=== PATIENT | male | born 1955 | race Caucasian/White ===

== ENCOUNTER 2016-12-21 05:48 | Inpatient (IN) | payer OTHER ==
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
[2016-12-21] MEDS ORDERED: ACETAMINOPHEN 325 MG TAB PO ONE (06:07)
[2016-12-21] MEDS ORDERED: TRANEXAMIC ACID 850 MG in NS 100 ML IV ONE (06:07)
[2016-12-21] MEDS ORDERED: ROPIVACAINE 0.2% 80 MG, EPINEPHrine 0.2 MG, KETOROLAC TROMETHAMINE 30 MG in BAG 0 ML IU ONE (06:07)
[2016-12-21] MEDS ORDERED: POVIDONE-IODINE 20 ML in SODIUM CL IRRIG SOLUTION 500 ML IRR ONE (06:07)
[2016-12-21] MEDS ORDERED: DEXAMETHASONE 4 MG/ML VIAL IVP ONE (06:07)
[2016-12-21] MEDS ORDERED: ceFAZolin 2 GM/DEXTROSE 100 ML IV ONE (06:07)
[2016-12-21] MEDS ORDERED: FAMOTIDINE 20 MG TAB PO ONE (06:07)
[2016-12-21] MEDS ORDERED: LIDOCAINE 1% 2 ML INJ ID PRN (06:08)
[2016-12-21] MEDS ORDERED: LR 1,000 ML IV ONE (06:08)
[2016-12-21] MEDS ORDERED: ceFAZolin 1 GM/5 ML SYR ONE (06:55)
[2016-12-21] MEDS ORDERED: MIDAZOLAM 2 MG/2 ML VIAL ONE ×2 (07:20→07:39)
[2016-12-21] MEDS ORDERED: PROPOFOL/EMULSION 500 MG/50 ML BOTTLE IV ONE (07:21)
[2016-12-21] MEDS ORDERED: fentaNYL 100 MCG/2 ML INJ ONE ×2 (07:59→10:05)
[2016-12-21] MEDS ORDERED: LIDOCAINE 2% 5 ML SDV ONE (08:16)
[2016-12-21] MEDS ORDERED: KETOROLAC 30 MG/1 ML SDV ONE (08:16)
[2016-12-21] MEDS ORDERED: ROPIVACAINE HCL 150 MG/30 ML INJ ONE (08:16)
[2016-12-21] MEDS ORDERED: ONDANSETRON 4 MG/2 ML VIAL ONE (08:16)
[2016-12-21] MEDS ORDERED: DEXAMETHASONE 10 MG/ML VIAL ONE (08:20)
[2016-12-21] MEDS ORDERED: METOCLOPRAMIDE 10 MG/2 ML VIAL IVP PRN ×2 (08:28→10:48)
[2016-12-21] MEDS ORDERED: ONDANSETRON 4 MG/2 ML VIAL IVP PRN ×2 (08:28→10:48)
[2016-12-21] MEDS ORDERED: LR 500 ML IV PRN (08:28)
[2016-12-21] MEDS ORDERED: NALOXONE HCL 0.4 MG/ML INJ IVP PRN (08:28)
[2016-12-21] MEDS ORDERED: ALBUTEROL 3 ML DEYVIAL IH PRN (08:28)
[2016-12-21] MEDS ORDERED: PROMETHAZINE HCL 25 MG/ML INJ IVP PRN ×2 (08:28→10:48)
[2016-12-21] MEDS ORDERED: fentaNYL 100 MCG/2 ML INJ IVP PRN (08:28)
[2016-12-21] MEDS ORDERED: MEPERIDINE 25 MG/ML SYR IVP PRN (08:28)
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
[2016-12-21] MEDS ORDERED: BISACODYL 10 MG SUPP PR PRN (10:48)
[2016-12-21] MEDS ORDERED: ONDANSETRON DISINTEGRATING 4 MG TAB PO PRN (10:48)
[2016-12-21] MEDS ORDERED: diphenhydrAMINE 25 MG CAP PO PRN (10:48)
[2016-12-21] MEDS ORDERED: DIPHENOXYLATE/ATROPINE LOMOTIL 1 TAB PO PRN (10:48)
[2016-12-21] MEDS ORDERED: KETOROLAC 30 MG/1 ML SDV IVP PRN (10:48)
[2016-12-21] MEDS ORDERED: POLYETHYLENE GLYCOL 3350 17 GM PKT PO PRN (10:48)
[2016-12-21] MEDS ORDERED: TEMAZEPAM 15 MG CAP PO PRN (10:48)
[2016-12-21] MEDS ORDERED: PROMETHAZINE HCL 25 MG SUPPR PR PRN (10:48)
[2016-12-21] MEDS ORDERED: CYCLOBENZAPRINE 10 MG TAB PO PRN (10:48)
[2016-12-21] MEDS ORDERED: MAGNESIUM HYDROXIDE 30 ML UDCUP PO PRN (10:48)
[2016-12-21] MEDS ORDERED: oxyCODONE IR 5 MG TAB PO PRN (10:48)
[2016-12-21] MEDS ORDERED: LACTULOSE 20 GM/30 ML UDCUP PO PRN (10:48)
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
--- NOTE | 2016-12-21 12:06 | POSTANESTH ---
Post Anesthetic Evaluation Cardiovascular Status: Normal, Stable Respiratory Status: Normal, Stable Level of Consciousness/Mental Status: Can Participate in Eval Pain Control: Adequate, Prn Tx Ordered Nausea/Vomiting Control: Adequate, Prn Tx Ordered Complications Possibly Related to Anesthesia: None Noted
[2016-12-21] MEDS: ACETAMINOPHEN 325 MG TAB PO SCH ×3 (14:38→23:08)
[2016-12-21] MEDS: LR 1,000 ML IV SCH (15:30)
[2016-12-21] MEDS: ceFAZolin 2 GM/DEXTROSE 100 ML IV SCH ×2 (16:29→21:14)
[2016-12-21] MEDS: FAMOTIDINE 20 MG TAB PO SCH (21:13)
[2016-12-21] MEDS: SENNOSIDES/DOCUSATE SODIUM TAB PO SCH (21:13)
[2016-12-21] MEDS: ASPIRIN 325 MG TAB PO SCH (22:27)
[2016-12-21 23:51] VITALS: TEMP 97.7
[2016-12-22] MEDS: LR 1,000 ML IV SCH (02:42)
[2016-12-22 04:56] LABS: HEMATOCRIT 36.6 % (40.0-51.0); HEMOGLOBIN 12.8 g/dL (13.7-17.5)
[2016-12-22] MEDS: ACETAMINOPHEN 325 MG TAB PO SCH ×2 (05:37→11:58)
[2016-12-22 07:59] VITALS: RESP 16
--- NOTE | 2016-12-22 08:15 | SOAPPROG ---
EMILI Progress Note Assessment/Plan: Assessment: POD#1 R TKA, pain controlled, has been up, jb rey, Hct36 Plan: 12/22/16 08:12 Home after PT/OT, oxy, asa, will set up out patient PT at my office Objective: Vital Signs Temp Pulse Resp BP Pulse Ox 36.5 C 78 16 117/76 95 12/22/16 07:57 12/22/16 07:57 12/22/16 07:57 12/22/16 07:57 12/22/16 07:57 Laboratory Results 12/22/16 04:36 12/21/16 12/22/16 12/23/16 05:59 05:59 05:59 Intake Total 1010 Output Total 1720 Balance -710 ICD10 Worksheet Patient Problems: Problems Problem Status Onset Knee osteoarthritis Acute - ICD10 Problem Qualifiers (1) Knee osteoarthritis
[2016-12-22] MEDS: FAMOTIDINE 20 MG TAB PO SCH (08:45)
[2016-12-22] MEDS: ASPIRIN 325 MG TAB PO SCH (08:45)
[2016-12-22] MEDS: SENNOSIDES/DOCUSATE SODIUM TAB PO SCH (08:45)
--- NOTE | 2016-12-22 10:37 | ASMTCMCOM ---
CM Note CM Note Notes: OT rec home, PT rec HHC. Spoke w pt who declines HHC. Pt has outpatient therapy scheduled, has had HHC in the past and declines the need at this time. Date Signed: 12/22/2016 10:37 AM Electronically Signed By:MICHAEL Mayberry
[2016-12-22 12:49] VITALS: BP 112/62; PULSE 60; O2SAT 92
--- NOTE | 2016-12-22 15:28 | ASDISCHSUM ---
Discharge Information Plan Status:Home with No Needs Medically Cleared to Leave: Discharge Date:12/22/2016 01:59 PM CM D/C Disposition: ADT D/C Disposition:Home, Routine, Self-Care Projected Discharge Date:12/22/2016 01:59 PM Transportation at D/C: Discharge Delay Reason: Follow-Up Date:12/22/2016 01:59 PM Discharge Slot: Final Diagnosis: Placement Information Patient Contact Information Contact Name:LONG Relationship: Address:[address] City:[place] Alternate Phone: [facility]/Zip Code:[place] [address] Email: Financial Information Financial Class:HMO and PPO Plans Primary Plan Desc:RAFAEL CULLEN PPO Primary Plan Number:[id number] Secondary Plan Desc:DYLAN PPO POS HMO SIG ADM Secondary Plan Number:[id number] Assessment Information [facility] CM Progress Note CM Note CM Note Notes: OT rec home, PT rec HHC. Spoke w pt who declines HHC. Pt has outpatient therapy scheduled, has had HHC in the past and declines the need at this time. Date Signed: 12/22/2016 10:37 AM Electronically Signed By:MICHAEL Mayberry Intervention Information
== END 2016-12-22 13:59 | disposition home or self-care (01) | DRG 470 ==
LOC: F3N 05:48
PROVIDERS: ADMIT Orthopaedic Surgery; ATTEND Orthopaedic Surgery
PROC: 0SR90J9 Replacement of Right Hip Joint with Synthetic Substitute, Cemented, Open Approach (ICD-10-PCS; principal; 2016-12-21 07:15)
DX: M17.11 Unilateral primary osteoarthritis, right knee (principal); Z89.612 Acquired absence of left leg above knee
CPT/HCPCS: 97116-GP; 97161-GP; 97165-GO; C1713; J0171; J0690; J1100; J1885; J2250; J2405; J2704; J2795; J3010